=== PATIENT | male | born 1985 | race Caucasian/White ===

== ENCOUNTER 2018-12-18 20:43 | Emergency (ER) | payer SELFPAY ==
[~2018-12-18] VITALS: Ht 180.3 cm; Wt 86.2 kg
[2018-12-18] MEDS ORDERED: ONDANSETRON ODT 4 MG TAB.RAPDIS. PO ONE (21:00)
[2018-12-18] MEDS ORDERED: HYDROcodone/APAP 5/325MG 1 TAB TABLET PO ONE (21:00)
[2018-12-18] MEDS ORDERED: ONDANSETRON ODT 4 MG TAB.RAPDIS. ONE (21:00)
--- NOTE | 2018-12-18 21:26 | RAD ---
EXAM: Right shoulder, 3 views. HISTORY: Pain. COMPARISON: None. FINDINGS: 3 views of the right shoulder obtained. There is widening of the acromial clavicular joint likely due to subluxation/dislocation. There is a mildly displaced fracture of the right mid clavicle. There is a suspected tiny right cervical rib. There is a tiny degenerative subchondral cyst or erosion involving the distal clavicle. The glenohumeral joint is intact. IMPRESSION: 1. Mildly displaced right mid clavicle fracture. 2. Right acromioclavicular joint dislocation/subluxation. Electronically signed by: Emeli Jordan MD (12/18/2018 9:24 PM) [facility]
[2018-12-18] MEDS ORDERED: ONDA4TAB7 PO (21:49)
[2018-12-18] MEDS ORDERED: HYDR-3164 PO (21:49)
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
[2018-12-18 22:05] VITALS: BP 104/56
== END 2018-12-18 22:25 | disposition home or self-care (01) ==
LOC: ER 20:43
DX: S42.024A Nondisplaced fracture of shaft of right clavicle, initial encounter for closed fracture (principal); S43.101A Unspecified dislocation of right acromioclavicular joint, initial encounter; F10.20 Alcohol dependence, uncomplicated; Y90.9 Presence of alcohol in blood, level not specified; V87.8XXA Person injured in other specified noncollision transport accidents involving motor vehicle (traffic), initial encounter; Y93.39 Activity, other involving climbing, rappelling and jumping off; Y92.410 Unspecified street and highway as the place of occurrence of the external cause; Y99.8 Other external cause status
CPT/HCPCS: 73030; 99285; Q0162